=== PATIENT | male | born 1955 | race Caucasian/White ===

== ENCOUNTER 2022-01-29 08:36 | Day surgery (SDC) | payer MEDICARE, OTHER ==
--- NOTE | 2022-01-15 08:59 | HP ---
HISTORY OF PRESENT ILLNESS: The patient had some anemia of unclear etiology, in need of upper and lower endoscopy for further evaluation. PAST MEDICAL HISTORY: Hypertension. Diabetes. Atrial fibrillation. PAST SURGICAL HISTORY: Right hand surgery. MEDICATIONS: Xarelto, Metformin. ALLERGIES: NKDA. FAMILY HISTORY: Negative in regards to this problem. SOCIAL HISTORY: No alcohol use. Denies smoking. REVIEW OF SYSTEMS: Fourteen systems reviewed. No chest pain or palpitations. Other systems negative or noncontributory as above and per preadmission questionnaire. PHYSICAL EXAMINATION: GENERAL: No acute distress. HEENT: Sclerae nonicteric. NECK: No JVD. CHEST: Equal excursion, nonlabored breathing. CVS: Regular rate and rhythm. ABDOMEN: Soft. EXTREMITIES: No significant edema. NEURO: Alert, oriented, moving extremities symmetrically. RECTAL: Deferred timed to endoscopy exam. PSYCH: Appropriate mood and affect. IMPRESSION: Anemia of unclear etiology, need for EGD and colonoscopy for further evaluation. Risks and benefits explained in detail including but not limited to bleeding or infection, risk of bowel injury or perforation possibly requiring open procedure, risk of missed or nondiagnosis or incomplete exam possibly requiring barium enema, other studies or procedures. General risk of anesthesia or sedation, risk of bowel prep but not limited to, consent was obtained, will proceed with EGD and colonoscopy as an outpatient.
--- NOTE | 2022-01-29 07:43 | HP ---
DATE OF SURGERY: 01/29/2022 HISTORY OF PRESENT ILLNESS: The patient has anemia and in need of EGD and colonoscopy requested by Dr. Agarwal. PAST MEDICAL HISTORY: Hypertension, diabetes mellitus type II. PAST SURGICAL HISTORY: Right hand surgery. MEDICATIONS: Xarelto, Metformin, losartan, aspirin, metoprolol, hydrochlorothiazide. ALLERGIES: NKDA. FAMILY HISTORY: Heart disease. SOCIAL HISTORY: No smoking. Occasional alcohol use. REVIEW OF SYSTEMS: Fourteen systems reviewed. No chest pain or palpitations. He is followed by Dr. Mathew. PHYSICAL EXAMINATION: GENERAL: No acute distress. HEENT: Sclerae nonicteric. NECK: No JVD. CHEST: Equal excursion, nonlabored breathing. CVS: Regular rate and rhythm. ABDOMEN: Soft, nondistended. EXTREMITIES: No significant edema. NEURO: Alert, oriented, moving extremities symmetrically. RECTAL: Deferred timed to endoscopy exam. PSYCH: Appropriate mood and affect. IMPRESSION: Anemia, need for upper and lower endoscopy for further evaluation. 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 General risk of anesthesia or sedation, risk of bowel prep but not limited to, consent obtained, will proceed with outpatient EGD and colonoscopy under MAC anesthesia.
[2022-01-29] MEDS ORDERED: Lactated Ringers 1,000 ML IV SCH (09:00)
[2022-01-29] MEDS ORDERED: DIPRIVAN 200 MG/20 ML IV ONE ×3 (10:42→11:04)
[2022-01-29] MEDS ORDERED: Xylocaine-Mpf 2% 5 Ml Vial ONE (10:42)
[2022-01-29] MEDS ORDERED: Ephedrine Sulfate 50 MG/ML ONE (11:07)
[2022-01-29] MEDS ORDERED: Lactated Ringers 1,000 ML IV ONE (11:13)
[2022-01-29 12:29] VITALS: BP 110/60; PULSE 62; O2SAT 98
--- NOTE | 2022-01-29 15:06 | OP ---
SURGERY DATE/TIME: 01/29/2022 1038 PREOPERATIVE DIAGNOSIS: Anemia of unclear etiology, need for upper and lower endoscopy. POSTOPERATIVE DIAGNOSES: 1) Minimal gastritis. 2) Very tiny slight weakness at the hiatus. No evidence of any large hiatal hernia. 3) Distal esophagus short segment, question Chowdhury's esophagus. 4) One small erosion distal esophagus consistent with erosive esophagitis. 5) Colon polyp. 6) Pancolonic diverticulosis. 7) Fair bowel prep. 8) Withdrawal time about 12 minutes. 9) ASA Class III. PROCEDURES: 1) EGD with cold biopsy of antrum to evaluate for Helicobacter pylori. 2) Cold biopsy distal esophagus to evaluate for Chowdhury's. 3) Cold biopsy distal esophagus small erosion to evaluate erosive esophagitis. 4) Colonoscopy to cecum. 5) Hot snare polypectomy cecal polyp. 6) Hot biopsy polypectomy ascending colon polyp removed with hot biopsy with hot snare. 7) Hot biopsy polypectomy sigmoid colon polyp. 8) Hot snare polypectomy distal sigmoid colon polyp. 9) Hot snare polypectomy two rectal polyps. 10) Hot biopsy polypectomy two separate rectal polyps. SURGEON: Dr. Sabas Medina. CHASER APPRENTICE: Ibis Stringer, Medical Student III. ANESTHESIA: MAC. ESTIMATED BLOOD LOSS: Minimal. INDICATIONS: As noted above. Risks and benefits explained in detail and not limited to and consent obtained. DESCRIPTION OF PROCEDURE AND FINDINGS: The patient is taken to the endoscopy room. MAC anesthesia induced. After official time out and no disagreement with planned procedure, bite block positioned. After waiting on anesthesia, MAC anesthesia was induced. Bite block positioned. Video gastroscope easily passed down the esophagus to the patent pylorus to third portion of the duodenum. First, second and third portions of duodenum grossly unremarkable. No signs of any ulcers or obvious source of fresh or old blood. Back in the stomach, had some mild gastric erythema and some possible minimal gastritis. Cold biopsy taken to check for Helicobacter pylori. On retroflex the patient had a very slight weakness on the hiatus. No evidence of any large hiatal hernia. Scope is straightened. Gastroesophageal junction about 39 cm. About 1.5 cm of salmon-pink mucosa extending up one fingerlette up the esophagus, question Chowdhury's esophagus. Multiple cold biopsies taken. Just above this there is one small erosion and a separate cold biopsy taken of this to evaluate for erosive esophagitis. The remainder of the esophagus grossly unremarkable. No signs of any obvious mass. No signs of any active bleeding. The scope is withdrawn. The patient tolerated the procedure well. Attention was then turned to colonoscopy. Digital rectal exam did not reveal any rectal masses. Video colonoscope inserted and passed up through the tortuous sigmoid, descending, transverse, ascending colon around to the cecum. With external pressure the scope finally reached the cecum. Appendiceal orifice and valve were well visualized and photo documented. There was a 3.5 to 4 mm polyp in the cecum removed with hot snare polypectomy and brief bursts of cautery. Good hemostasis noted. Scope pulled back into the ascending colon. Another small polyp removed with hot snare polypectomy or hot biopsy polypectomy. Good hemostasis noted. The patient did have pancolonic diverticulosis. The prep overall was fair with some liquidy semisolid stool limiting the exam for small lesions. ASA Class III. The scope is carefully withdrawn over the next 12 minutes. He had pancolonic diverticulosis a little bit more concentrated on the left side. In the sigmoid colon, polyps removed hot biopsy/hot snare polypectomy. Good hemostasis noted. Back in the rectum, he had two polyps removed with hot snare polypectomy. Another one may have been a little bit inflammatory in nature. Otherwise, two small polyps removed with hot biopsy polypectomy with brief bursts of cautery. Good hemostasis noted. The scope is withdrawn. Patient tolerated the procedure well. Findings discussed with the family out in the waiting area.
== END 2022-01-29 12:15 | disposition home or self-care (01) ==
LOC: SDC 08:36
PROVIDERS: ATTEND Surgery
DX: K29.70 Gastritis, unspecified, without bleeding (principal); D64.9 Anemia, unspecified; E11.9 Type 2 diabetes mellitus without complications; D12.0 Benign neoplasm of cecum; K22.10 Ulcer of esophagus without bleeding; K57.30 Diverticulosis of large intestine without perforation or abscess without bleeding; K62.1 Rectal polyp
CPT/HCPCS: 82947; J2704

== ENCOUNTER 2023-07-29 09:38 | Day surgery (SDC) | payer MEDICARE, OTHER ==
--- NOTE | 2023-07-29 08:29 | HP ---
DATE OF SURGERY: 07/29/2023 HISTORY OF PRESENT ILLNESS: The patient is a 67-year-old gentleman with history of Chowdhury's. He is in need of follow up upper endoscopy. PAST MEDICAL HISTORY: Reflux, hypertension, atrial fibrillation, diabetes mellitus type II. PAST SURGICAL HISTORY: Hand surgery. Ankle surgery. Endoscopy. MEDICATIONS: Hydrochlorothiazide, metoprolol, losartan, metformin, Xarelto. ALLERGIES: NKDA. FAMILY HISTORY: Heart disease. SOCIAL HISTORY: No smoking. Occasional alcohol use. REVIEW OF SYSTEMS: Twelve systems reviewed. No chest pain or palpitations. Other systems negative or noncontributory as above and per preadmission questionnaire. PHYSICAL EXAMINATION: Height 6 foot. BMI 26.7. GENERAL: No acute distress. HEENT: Sclerae nonicteric. EOMI. Oral mucous membranes moist. NECK: No JVD. CHEST: Equal excursion, nonlabored breathing. CVS: Regular rate and rhythm. ABDOMEN: Soft, nontender. EXTREMITIES: No cyanosis or edema. NEURO: Alert, oriented, moving extremities symmetrically. PSYCH: Appropriate mood and affect. SKIN: Dry. IMPRESSION: History of Chowdhury's, needs follow up upper endoscopy. He was shown the risk sheet, explained the procedure in detail including but not limited to bleeding or infection, risk of bowel injury or perforation, risk of missed or nondiagnosis or incomplete exam, possibly requiring barium swallow, other studies or procedures. Risk of perforation possibly requiring converting to open procedure, ongoing risk of morbidity/mortality, risk of anesthesia or sedation. Will proceed with EGD possible biopsy as an outpatient. Hold his thinners preoperative. Otherwise continue medication for hypertension, heart disease and diabetes.
[2023-07-29] MEDS ORDERED: Lactated Ringers 1,000 ML IV SCH (10:00)
[2023-07-29 10:08] VITALS: RESP 16
[2023-07-29] MEDS ORDERED: Versed 2 MG/2 ML Injection ONE (11:51)
[2023-07-29] MEDS ORDERED: DIPRIVAN 200 MG/20 ML IV ONE (11:51)
[2023-07-29] MEDS ORDERED: SUBLIMAZE 100 MCG/2 ML ONE (11:57)
[2023-07-29 12:55] VITALS: BP 121/75; PULSE 70; TEMP 98.3; O2SAT 96
--- NOTE | 2023-07-30 08:13 | OP ---
SURGERY DATE/TIME: 07/29/2023 1156 PREOPERATIVE DIAGNOSIS: History of Chowdhury's esophagus need follow up upper endoscopy. POSTOPERATIVE DIAGNOSES: 1) Mild gastritis/gastropathy. 2) Short segment distal esophagus Chowdhury's esophagus. 3) ASA Class III. PROCEDURES: 1) EGD with cold biopsy of antrum. 2) Multiple cold biopsies distal esophagus area of salmon pink mucosa suggestive of Chowdhury's esophagus. SURGEON: Dr. Sabas Medina. ANESTHESIA: MAC. ESTIMATED BLOOD LOSS: Minimal. INDICATIONS: As noted above. Risks and benefits explained in detail and not limited to and consent obtained. DESCRIPTION OF PROCEDURE AND FINDINGS: The patient is taken to the endoscopy room. MAC anesthesia introduced. After official time out and no disagreement with planned procedure, a bite block positioned. Video gastroscope easily passed down the esophagus to the gastroesophageal junction through the patent pylorus to the third and fourth portion of the duodenum. Duodenum is grossly unremarkable. Back in the stomach, he had some gastritis and some superficial erosions in the interim, some minimal to mild gastritis. Cold biopsy is taken. Good hemostasis noted. There were no signs of any ulcers. On retroflex the gastroesophageal junction fairly snug against the scope. The scope is pulled back up and gastroesophageal junction about 40 cm. There was about 1 cm long short segment question of Chowdhury's esophagus. He has prior history of Chowdhury's. Multiple cold biopsies were taken of this area a 0.5 cm apart. There was mainly one fingerlette area. There was just a little bit of inflammation or esophagitis just right above this. This was a short segment. The remainder of the esophagus grossly unremarkable at this time. The scope is withdrawn. Patient tolerated the procedure well. There were no immediate complications. I went out to the waiting room to look for family for findings.
== END 2023-07-29 13:05 | disposition home or self-care (01) ==
LOC: SDC 09:38
PROVIDERS: ATTEND Surgery
DX: Z87.19 Personal history of other diseases of the digestive system (principal); E11.9 Type 2 diabetes mellitus without complications; K29.70 Gastritis, unspecified, without bleeding; K22.70 Barrett's esophagus without dysplasia
CPT/HCPCS: 82947; 93005; J2250; J2704; J3010

== ENCOUNTER 2024-05-30 19:50 | Emergency (ER) | payer MEDICARE, OTHER ==
--- NOTE | 2024-05-30 19:54 | ERPHSYRPT ---
- History of Present Illness Time Seen by Provider: 05/30/24 19:54 Historian: patient Exam Limitations: no limitations Physician History: This is a 68-year-old white male patient who is brought to the emergency department by the [employer] supervisor service. Patient has had intermittent vomiting episodes after eating for approximately 1 month. Today, he had 3 episodes of diarrhea stool. He has complained of generalized weakness. The intermittent vomiting occurs sometimes after eating but not every time. Patient does consume alcohol every day. He states he is decreased his oral intake of alcohol. He admits to drinking 3-4 beers a day and 3-4 hard liquor drinks a day. Patient does have a cough. Patient states that he is lost 20 to 30 pounds over the last 30 days. A year ago, he had an upper and lower endoscopy with no significant findings per his and his spouse's report. Patient has a history of diabetes, hyperlipidemia, arrhythmia, hypertension and is taking Xarelto. Patient denies chest pain and he denies abdominal pain. He states he does have a cough. He no longer smokes tobacco but does chew tobacco Timing/Duration: day(s) (He has had diarrheal symptoms x 3 today.), other (For over a month patient has had intermittent vomiting after eating.) Activities at Onset: none Severity of Pain-Max: none Severity of Pain-Current: none Modifying Factors: Improves With: coughing, vomiting Associated Symptoms: diarrhea (3 episodes today), nausea, vomiting, weakness, other (Weight loss), No chest pain Previous symptoms: no prior history, no recent treatment Allergies/Adverse Reactions: No Known Drug Allergies Allergy (Verified 05/30/24 20:08) Home Medications: Metformin HCl 500 mg [Glucophage 500 MG] 500 mg PO DAILY 01/22/22 [History] Pravastatin Sodium 10 mg PO HS 03/25/23 [History] Flecainide Acetate 50 mg PO BID 05/30/24 [History] Losartan Potassium 50 mg [Cozaar 50 MG] 1 tab PO DAILY 05/30/24 [History] Metoprolol Tartrate [Lopressor] 1 tab PO BID 05/30/24 [History] Travel Risk - International Travel Have you traveled outside of the country in past 3 weeks: No - Emerging Infectious Disease Are you exhibiting symptoms associated with any current EIDs: Yes Symptoms: Diarrhea, Vomitting - Review of Systems Constitutional: No Symptoms, Weakness Eyes: No Symptoms Ears, Nose, & Throat: No Symptoms Respiratory: No Symptoms Cardiac: No Symptoms Abdominal/Gastrointestinal: Nausea, Vomiting, Diarrhea, Appetite Changes Genitourinary Symptoms: No Symptoms Musculoskeletal: No Symptoms Skin: No Symptoms Neurological: No Symptoms Psychological: No Symptoms Endocrine: No Symptoms Hematologic/Lymphatic: No Symptoms Immunological/Allergic: No Symptoms All Other Systems: Reviewed and Negative - Past Medical History Pertinent Past Medical History: Yes Neurological History: No Pertinent History ENT History: No Pertinent History Cardiac History: Arrhythmia, Hypertension Respiratory History: Sleep Apnea Endocrine Medical History: Diabetes Type II Musculoskeletal History: No Pertinent History GI Medical History: No Pertinent History History: No Pertinent History Psycho-Social History: No Pertinent History Male Reproductive Disorders: No Pertinent History - Past Surgical History Past Surgical History: Yes Neuro Surgical History: No Pertinent History Cardiac: No Pertinent History Respiratory: No Pertinent History Gastrointestinal: No Pertinent History Genitourinary: No Pertinent History Musculoskeletal: Orthopedic Surgery Male Surgical History: No Pertinent History Other Surgical History: hand surgery. foot surgery - Social History Smoking Status: Former smoker Exposure to second hand smoke: No Drug Use: none - Nursing Vital Signs Nursing Vital Signs: Initial Vital Signs Temperature 100.2 F 05/30/24 19:55 Pulse Rate 99 H 05/30/24 19:55 Respiratory Rate 18 05/30/24 19:55 Blood Pressure 138/79 05/30/24 19:55 O2 Sat by Pulse Oximetry 98 05/30/24 19:55 Pain Scale Pain Intensity 0 - Physical Exam General Appearance: no apparent distress, alert, thin Eye Exam: PERRL/EOMI, eyes nml inspection Ears, Nose, Throat Exam: normal ENT inspection, moist mucous membranes Neck Exam: normal inspection, non-tender, supple, full range of motion Respiratory Exam: normal breath sounds, lungs clear, airway intact, No chest tenderness, No respiratory distress Cardiovascular Exam: regular rate/rhythm, normal heart sounds, normal peripheral pulses Gastrointestinal/Abdomen Exam: soft, normal bowel sounds, No tenderness Rectal Exam: not done Back Exam: normal inspection, normal range of motion, No CVA tenderness Extremity Exam: normal inspection, normal range of motion, pelvis stable Neurologic Exam: alert, oriented x 3, cooperative, 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, normal mood/affect Skin Exam: normal color, warm, dry Lymphatic Exam: No adenopathy SpO2 Interpretation: normal O2 Delivery: Room Air - Course Nursing assessment & vital signs reviewed: Yes Ordered Tests: Active Orders 24 hr Category Date Time Status ABDOMEN AND PELVIS W/0 CONTRAS [CT] Stat Exams 05/30/24 20:16 Completed CHEST WITHOUT CONTRAST [CT] Stat Exams 05/30/24 21:19 Completed AMYLASE Stat Lab 05/30/24 20:15 Completed BLOOD CULTURE Stat Lab 05/30/24 20:23 Received CBC W DIFF Stat Lab 05/30/24 20:15 Completed CMP Stat Lab 05/30/24 20:15 Completed ETHYL ALCOHOL Stat Lab 05/30/24 20:15 Completed LIPASE Stat Lab 05/30/24 20:15 Completed Lactic Acid Stat Lab 05/30/24 20:45 Completed Lactic Acid Stat Lab 05/30/24 22:54 Completed MAG [MAGNESIUM] Stat Lab 05/30/24 20:15 Completed MONO SCREEN Stat Lab 05/30/24 20:15 Completed Manual Differential NC Stat Lab 05/30/24 20:15 Completed TROPONIN Q4H Lab 05/30/24 23:33 Received UA W/RFX UR CULTURE Stat Lab 05/30/24 21:43 Completed Medication Summary Discontinued Medications Generic Name Dose Route Start Last Admin Trade Name Freq PRN Reason Stop Dose Admin Sodium Chloride 1,000 mls @ 999 mls/hr 05/30/24 20:16 05/30/24 22:25 Sodium Chloride 0.9% 1000 Ml IV 05/30/24 21:16 Infused .Q1H1M STA Infusion Sodium Chloride Confirm 05/30/24 20:53 Sodium Chloride 0.9% 1000 Ml Administered 05/30/24 20:54 Dose 1,000 mls @ ud .ROUTE .STK-MED ONE Sodium Chloride 1,000 mls @ 999 mls/hr 05/30/24 22:48 05/30/24 23:38 Sodium Chloride 0.9% 1000 Ml IV 05/30/24 23:48 999 mls/hr .Q1H1M STA Administration Levofloxacin/Dextrose 500 mg in 100 mls @ 100 mls/hr 05/30/24 23:24 05/30/24 23:39 Levofloxacin 500mg/100ml D5w IV 05/31/24 00:23 100 ml/hr STAT STA 100 mls/hr Administration Sodium Chloride Confirm 05/30/24 23:38 Sodium Chloride 0.9% 1000 Ml Administered 05/30/24 23:39 Dose 1,000 mls @ ud .ROUTE .STK-MED ONE Levofloxacin/Dextrose Confirm 05/30/24 23:38 Levofloxacin 500mg/100ml D5w Administered 05/30/24 23:39 Dose 500 mg in 100 mls @ ud IV .STK-MED ONE Ondansetron HCl 4 mg 05/30/24 20:16 05/30/24 20:58 Ondansetron Hcl 4 Mg/2 Ml Vial IV 05/30/24 20:17 4 mg STAT ONE Administration Ondansetron HCl Confirm 05/30/24 20:52 Ondansetron Hcl 4 Mg/2 Ml Vial Administered 05/30/24 20:53 Dose 4 mg .ROUTE .STK-MED ONE Pantoprazole Sodium 40 mg 05/30/24 20:16 05/30/24 20:58 Pantoprazole 40 Mg Vial IV 05/30/24 20:17 40 mg STAT ONE Administration Pantoprazole Sodium Confirm 05/30/24 20:52 Pantoprazole 40 Mg Vial Administered 05/30/24 20:53 Dose 40 mg IV .STK-MED ONE Lab/Rad Data: Laboratory Result Diagrams 05/30/24 20:15 05/30/24 20:15 Laboratory Results 05/30/24 05/30/24 05/30/24 Range/Units 22:54 21:43 20:45 WBC (4.23-9.07) x10^3/uL RBC (4.63-6.08) x10^6/uL Hgb (13.7-17.5) g/dL Hct (40.1-51.0) % MCV (79.0-92.2) fL MCH (25.7-32.2) pg MCHC (32.3-36.5) g/dL RDW (11.6-14.4) % Plt Count (163-337) x10^3/uL MPV (9.4-12.4) fL Segmented Neutrophils (34.0-67.9) % Band Neutrophils (0.0-2.0) % Lymphocytes (Manual) (21.8-53.1) % Monocytes (Manual) (5.3-12.2) % Eosinophils (Manual) (0.8-7.0) % Basophils (Manual) (0.2-1.2) % Platelet Estimate (NORMAL) RBC Morphology Sodium (135-145) mmol/L Potassium (3.5-5.1) mmol/L Chloride (98-107) mmol/L Carbon Dioxide (22-30) mmol/L Anion Gap (5-15) MEQ/L BUN (9-20) mg/dL Creatinine (0.66-1.25) mg/dL Estimated GFR ML/MIN Glucose (74-106) mg/dL Lactic Acid 3.3 H 3.9 H (0.4-2.0) Calcium (8.4-10.2) mg/dL Magnesium (1.6-2.3) mg/dL Total Bilirubin (0.2-1.3) mg/dL AST (17-59) U/L ALT (0-50) U/L Alkaline Phosphatase (38-126) U/L Serum Total Protein (6.3-8.2) g/dL Albumin (3.5-5.0) g/dL Amylase (30-110) U/L Lipase (23-300) U/L Urine Color Dark Yellow (Yellow) Urine Appearance Clear (Clear) Urine pH 6.5 (4.6-8.0) Ur Specific [place] 1.010 (1.005-1.030) Urine Protein Trace A (Negative) Urine Glucose (UA) Negative (Negative) mg/dL Urine Ketones Negative (Negative) Urine Blood Negative (Negative) Urine Nitrite Negative (Negative) Urine Bilirubin Negative (Negative) Urine Urobilinogen 1.0 A (0.2) mg/dL Ur Leukocyte Esterase Negative (Negative) U Hyaline Cast (Auto) 3-5 A (0-2) /LPF Urine Microscopic RBC 0-2 (0-5) /HPF Urine Microscopic WBC 0-2 (0-5) /HPF Ur Epithelial Cells None Seen (None Seen) /HPF Urine Bacteria None Seen (None Seen) /HPF Urine Culture Reflexed NO (NO) Ethyl Alcohol (0-10) mg/dL Monoscreen (NEGATIVE) Influenza Type A Ag (NEGATIVE) Influenza Type B Ag (NEGATIVE) RSV (PCR) (NEGATIVE) SARS-CoV-2 (PCR) (NEGATIVE) 05/30/24 05/30/24 05/30/24 Range/Units 20:15 20:15 20:15 WBC (4.23-9.07) x10^3/uL RBC (4.63-6.08) x10^6/uL Hgb (13.7-17.5) g/dL Hct (40.1-51.0) % MCV (79.0-92.2) fL MCH (25.7-32.2) pg MCHC (32.3-36.5) g/dL RDW (11.6-14.4) % Plt Count (163-337) x10^3/uL MPV (9.4-12.4) fL Segmented Neutrophils (34.0-67.9) % Band Neutrophils (0.0-2.0) % Lymphocytes (Manual) (21.8-53.1) % Monocytes (Manual) (5.3-12.2) % Eosinophils (Manual) (0.8-7.0) % Basophils (Manual) (0.2-1.2) % Platelet Estimate (NORMAL) RBC Morphology Sodium (135-145) mmol/L Potassium (3.5-5.1) mmol/L Chloride (98-107) mmol/L Carbon Dioxide (22-30) mmol/L Anion Gap (5-15) MEQ/L BUN (9-20) mg/dL Creatinine (0.66-1.25) mg/dL Estimated GFR ML/MIN Glucose (74-106) mg/dL Lactic Acid (0.4-2.0) Calcium (8.4-10.2) mg/dL Magnesium (1.6-2.3) mg/dL Total Bilirubin (0.2-1.3) mg/dL AST (17-59) U/L ALT (0-50) U/L Alkaline Phosphatase (38-126) U/L Serum Total Protein (6.3-8.2) g/dL Albumin (3.5-5.0) g/dL Amylase (30-110) U/L Lipase (23-300) U/L Urine Color (Yellow) Urine Appearance (Clear) Urine pH (4.6-8.0) Ur Specific [place] (1.005-1.030) Urine Protein (Negative) Urine Glucose (UA) (Negative) mg/dL Urine Ketones (Negative) Urine Blood (Negative) Urine Nitrite (Negative) Urine Bilirubin (Negative) Urine Urobilinogen (0.2) mg/dL Ur Leukocyte Esterase (Negative) U Hyaline Cast (Auto) (0-2) /LPF Urine Microscopic RBC (0-5) /HPF Urine Microscopic WBC (0-5) /HPF Ur Epithelial Cells (None Seen) /HPF Urine Bacteria (None Seen) /HPF Urine Culture Reflexed (NO) Ethyl Alcohol < 10 (0-10) mg/dL Monoscreen POSITIVE (NEGATIVE) Influenza Type A Ag NEGATIVE (NEGATIVE) Influenza Type B Ag NEGATIVE (NEGATIVE) RSV (PCR) NEGATIVE (NEGATIVE) SARS-CoV-2 (PCR) NEGATIVE (NEGATIVE) 05/30/24 05/30/24 05/30/24 Range/Units 20:15 20:15 20:15 WBC 14.1 H (4.23-9.07) x10^3/uL RBC 3.60 L (4.63-6.08) x10^6/uL Hgb 13.1 L (13.7-17.5) g/dL Hct 36.2 L (40.1-51.0) % MCV 100.6 H (79.0-92.2) fL MCH 36.4 H (25.7-32.2) pg MCHC 36.2 (32.3-36.5) g/dL RDW 13.0 (11.6-14.4) % Plt Count 172 (163-337) x10^3/uL MPV 10.3 (9.4-12.4) fL Segmented Neutrophils 80 H (34.0-67.9) % Band Neutrophils 10 H (0.0-2.0) % Lymphocytes (Manual) 4 L (21.8-53.1) % Monocytes (Manual) 4 L (5.3-12.2) % Eosinophils (Manual) 1 (0.8-7.0) % Basophils (Manual) 1 (0.2-1.2) % Platelet Estimate NORMAL (NORMAL) RBC Morphology NORMAL Sodium 129 L (135-145) mmol/L Potassium 4.4 (3.5-5.1) mmol/L Chloride 96 L (98-107) mmol/L Carbon Dioxide 24 (22-30) mmol/L Anion Gap 13.3 (5-15) MEQ/L BUN 4 L (9-20) mg/dL Creatinine 0.66 (0.66-1.25) mg/dL Estimated GFR 102.2 ML/MIN Glucose 147 H (74-106) mg/dL Lactic Acid (0.4-2.0) Calcium 8.9 (8.4-10.2) mg/dL Magnesium 1.4 L (1.6-2.3) mg/dL Total Bilirubin 1.40 H (0.2-1.3) mg/dL AST 97 H (17-59) U/L ALT 52 H (0-50) U/L Alkaline Phosphatase 106 (38-126) U/L Serum Total Protein 6.7 (6.3-8.2) g/dL Albumin 3.5 (3.5-5.0) g/dL Amylase 61 (30-110) U/L Lipase 174 (23-300) U/L Urine Color (Yellow) Urine Appearance (Clear) Urine pH (4.6-8.0) Ur Specific [place] (1.005-1.030) Urine Protein (Negative) Urine Glucose (UA) (Negative) mg/dL Urine Ketones (Negative) Urine Blood (Negative) Urine Nitrite (Negative) Urine Bilirubin (Negative) Urine Urobilinogen (0.2) mg/dL Ur Leukocyte Esterase (Negative) U Hyaline Cast (Auto) (0-2) /LPF Urine Microscopic RBC (0-5) /HPF Urine Microscopic WBC (0-5) /HPF Ur Epithelial Cells (None Seen) /HPF Urine Bacteria (None Seen) /HPF Urine Culture Reflexed (NO) Ethyl Alcohol (0-10) mg/dL Monoscreen (NEGATIVE) Influenza Type A Ag (NEGATIVE) Influenza Type B Ag (NEGATIVE) RSV (PCR) (NEGATIVE) SARS-CoV-2 (PCR) (NEGATIVE) - Progress Progress: unchanged Progress Note: 05/30/24 21:24 My medical decision making and the assignment of moderate complexity to this patient's medical issue today is based on review of the patient's past medical history, review the patient's medication list, reviewed patient drug allergy list, history present illness and physical findings on examination. The workup in this patient includes placement of an intravenous line, infusion of normal saline solution, infusion of Zofran intravenously, infusion of Protonix intravenously, CBC, CMP, urinalysis, viral swabs, monotest, CT scan of the chest and CT scan of the abdomen pelvis both without contrast. Differential diagnosis includes but is not limited to viral illness, pneumonia, intrathoracic abnormality, acute intra-abdominal/pelvis abnormality 05/31/24 00:35 I interpreted the patient's laboratory data results. The patient does have leukocytosis with an elevated lactic acid level. His magnesium level is slightly low at 1.4. His monotest is positive. The CT scan of the chest without contrast was interpreted by the radiologist and I reviewed the impression. 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 Questionable chronic organizing pneumonia. No pleural effusion. Stable cholelithiasis and degenerative changes in the spine. CT scan of the abdomen pelvis without contrast was interpreted by the radiologist and I reviewed the impression. Cholelithiasis without cholecystitis. Noncomplicated colonic diverticula. No change when compared to similar study dated 01/02/2022. The patient denies shortness of breath and his room air oxygen saturation level is 98%. He denies chest pain. I reviewed the patient's CT scan results and his laboratory data results with the patient and his significant other. I expressed to him my concern that he has an elevated white count, pneumonia, and a drop in his blood pressure. After 2 L crystalloid infusion, his systolic blood pressure has improved to 103 mmHg. However, I told the patient and his systolic blood pressure was not in the normal range that he should be transferred to a facility or admitted into our facility. Patient declines both of those options. He understands that his condition can worsen suddenly or cause other life- threatening medical issues. The patient was told he could be experiencing sepsis and this can worsen. Patient understands and he wants to leave AGAINST MEDICAL ADVICE. He will sign the AGAINST MEDICAL ADVICE form. Counseled pt/family regarding: lab results, diagnosis, need for follow-up, rad results Medical Desision Making - Independent Historian Additional History obtained from: Spouse - Diagnostic Testing Diagnostic test were ordered, analyzed, and reviewed by me: Yes Radiological Interpretation: Reviewed by me, Teleradiologist Report - Risk of complications The pt has a mod risk of morbidity or mortality based on: Need for prescription drug management - Departure Departure Disposition: AMA Clinical Impression: Pneumonia, Hypotension, Hypomagnesemia Condition: Fair Critical Care Time: Yes Critical Care Time(excluding separately billable procedures): Critical 30-74 mins (45) Referrals: TONY,SUNNI [Primary Care Provider] - Follow up/PCP as directed Additional Instructions: Drink plenty of fluids. Take your antibiotics and other medications as prescribed. Return to the emergency department if symptoms worsen. Call your primary care provider on 06/01/2024 to make arrangements for a follow-up appointment and for further recommendations and management Prescriptions: Levofloxacin [Levaquin 500 MG Tablet] 500 mg PO DAILY #7 tablet Magnesium Oxide 400 mg [Mag-Ox 400] 400 mg PO DAILY #3 tablet
[2024-05-30 19:57] VITALS: TEMP 100.2
[2024-05-30 20:47] LABS: Hematocrit 36.2 % (40.1-51.0); Hemoglobin 13.1 g/dL (13.7-17.5); Mean Cell Volume 100.6 fL (79.0-92.2); Mean Corpuscular Hemoglobin 36.4 pg (25.7-32.2); Mean Corpuscular Hgb Concent. 36.2 g/dL (32.3-36.5); Mean Platelet Volume 10.3 fL (9.4-12.4); Platelet Count 172 x10^3/uL (163-337); White Blood Count 14.1 x10^3/uL (4.23-9.07)
[2024-05-30] MEDS ORDERED: PROTONIX 40 MG IV IV ONE (20:52)
[2024-05-30] MEDS ORDERED: Zofran 4 MG/2 ML VIAL ONE (20:52)
[2024-05-30] MEDS ORDERED: Sodium Chloride 0.9% 1000 ML 1,000 ML ONE ×2 (20:53→23:38)
[2024-05-30] MEDS: PROTONIX 40 MG IV IV ONE (20:58)
[2024-05-30] MEDS: Zofran 4 MG/2 ML VIAL IV ONE (20:58)
[2024-05-30] MEDS: Sodium Chloride 0.9% 1000 ML 1,000 ML IV STA ×2 (20:58→23:38)
[2024-05-30 21:07] LABS: ALBUMIN 3.5 g/dL (3.5-5.0); ANION GAP 13.3 MEQ/L (5-15); BILIRUBIN,TOTAL 1.4 mg/dL (0.2-1.3); Calcium 8.9 mg/dL (8.4-10.2); Creatinine 1 0.66 mg/dL (0.66-1.25); EST GLOMERULAR FILTRATION RATE 102.2 ML/MIN; Potassium 4.4 mmol/L (3.5-5.1); Total Protein 6.7 g/dL (6.3-8.2)
[2024-05-30 21:23] LABS: INFLUENZA A NEGATIVE (NEGATIVE); INFLUENZA B NEGATIVE (NEGATIVE); RESPIRATORY SYNCTIAL VIRUS NEGATIVE (NEGATIVE); SARS-CoV-2 Xpert Express NEGATIVE (NEGATIVE)
[2024-05-30 21:53] LABS: Appearance Clear (Clear); Bacteria None Seen /HPF (None Seen); Bilirubin Negative (Negative); Blood Negative (Negative); Epithelial Cells None Seen /HPF (None Seen); Glucose, Urine Negative (Negative); Ketones Negative (Negative); Leukocyte Esterase Negative (Negative); Nitrite Negative (Negative); Ph 6.5 (4.6-8.0); Protein,Urine Dip Trace (Negative); RBC 0-2 /HPF (0-5); WBC 0-2 /HPF (0-5)
--- NOTE | 2024-05-30 22:40 | XRAY ---
CLINICAL HISTORY: Vomiting and diarrhea COMPARISON: Comparison is made with CT dated 01/12/2022. TECHNIQUE: Non-contrast CT of the abdomen and pelvis was performed, with the following protocol: axial images, and reconstructed coronal and sagittal images. One of the following dose reduction techniques was utilized for this exam: Automated exposure control, adjustment of the mA and/or kV according to patient size, and use of iterative reconstruction. FINDINGS: Abdomen: Liver: Normal in size, with fatty hypoattenuation and caudate lobe hypertrophy. An 8 mm faint hypodensity is seen in the left lobe of liver. Gallbladder and Biliary System: The gallbladder is normal in size and shape. Two calculi of 9-10 mm each are seen in gall bladder lumen. No wall thickening, pericholecystic fluid, or wall edema identified. Pancreas: Pancreatic head, body, and tail are visualized and appear normal in size and density. No pancreatic masses or calcifications were noted. Spleen: Normal in size, shape, and density. No splenic lesions or masses were identified. Kidneys and Adrenal Glands: Both kidneys are normal in size, shape, and position. Cortical thickness is within normal limits. No renal calculi or hydronephrosis. Bilateral perinephric fat stranding is seen - non-specific. Adrenal glands are unremarkable. Abdominal Aorta and Vessels: The abdominal aorta and major branches are patent without evidence of an aneurysm. Significant atherosclerotic changes are seen as interrupted wall calcifications. Pelvis: Urinary Bladder: Normal in contour and wall thickness. No intraluminal lesions. Prostate: Normal in size and contour. No masses or abnormal thickening. Seminal Vesicles: Normal appearance without abnormal enlargement or mass. Peritoneal and Retroperitoneal Structures: No free fluid or abnormal fluid collections were identified within the abdomen or pelvis. No lymphadenopathy was noted. Bowel: Colonic diverticulae are seen in descending and sigmoid colon, however, no pericolonic fat stranding or pericolonic abscesses is seen. No evidence of bowel obstruction or wall thickening. The appendix appears normal with no adeel appendiceal fat stranding or fluid collection. Bones and Soft Tissues: Visualized spine shows degenerative changes in the form of multilevel anterior osteophytosis along with vacuum phenomenon at the L4-L5 level. No fractures or abnormal masses were identified. Lung bases show bilateral fibrotic strands. IMPRESSION: Overall, non-contrast CT abdomen and pelvis demonstrate: 1. Cholelithiasis without cholecystitis. 2. Non-complicated colonic diverticulosis. 3. Hepatic hypodensity which on comparison with previous contrast enhanced CT is a hepatic cyst. 4. On comparison with the previous CT dated 01/12/2022 no interval change. Electronically Signed by: Aneudy Earl MD. (05/30/2024 22:35:59 EST)
--- NOTE | 2024-05-30 22:42 | XRAY ---
CLINICAL HISTORY: COUGH, 30 LB WEIGHT LOSS COMPARISON: 01/12/2022. TECHNIQUE: Contiguous axial CT images of the chest were acquired without administration of intravenous contrast. Coronal and sagittal reconstructions were obtained. One of the following dose reduction techniques were utilized for this exam: Automated exposure control, adjustment of the mA and/or kV according to patient size, use of iterative reconstruction. FINDINGS: Lungs: Focal consolidation seen involving the para hilar regions of both lungs, the right lung middle lobe and the lingular segment of left lung upper lobe. Patchy subpleural groundglass consolidation seen in the posterior and apico-posterior segments of both upper lobes and the posterior basal segments of both lungs lower lobes. Appearances are in keeping with alveolitis/pneumonitis. However possibility of other etiologies like chronic eosinophilic pneumonia/extrinsic allergic alveolitis, and chronic organizing pneumonia may also need consideration and exclusion. No pulmonary masses or gross nodules are identified. For calcified granuloma seen in the lateral basal segment of the right lower lobe. No pleural effusion seen. Focal pleuroperitoneal thickening with a speck of calcification seen along the posterior aspect of the spleen near the left basal lung. Mediastinum: The mediastinum is normal in size and contour. No mediastinal mass or abnormal lymphadenopathy. The heart size is within normal limits. Atherosclerotic aortic wall calcifications seen Hilar Structures: Few small partially calcified lymph nodes seen in the right hilar region. No significant hilar lymph nodes seen. Trachea and Main Bronchi: The trachea and main bronchi are patent without evidence of obstruction or abnormality. Chest Wall: The chest wall is unremarkable with no evidence of soft tissue or bony abnormalities. Upper Abdomen: Visualized portions of the liver, spleen, adrenal glands, and right kidney are unremarkable. Very small hiatal hernia seen Two radiodense foci seen in the gallbladder suggest cholelithiasis Bones: Degenerative changes seen in the spine. 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 IMPRESSION: 1. Appearances described in both the lungs are in keeping with alveolitis/pneumonitis, however possibility of other etiologies like chronic eosinophilic pneumonia / extrinsic allergic alveolitis and chronic organizing penumonia may also need consideration and exclusion. 2. No pleural effusion seen. 3. Few non specific small partially calcified lymph nodes seen in the right hilar region. Stable 4. Focal pleuro-peritoneal thickening seen along the posterior aspect of the spleen near the left basal lung with a speck of calcification likely represents sequelae of earlier infected inflammatory etiology 5. Cholelithiasis. Stable 6. Degenerative changes in his spine with thickened anterior longitudinal ligament and focal intervertebral disc calcification. Stable 7. Very small hiatal hernia seen. Stable 8. Clinical and lab correlation advised. Further evaluation by HRCT chest may also be obtained if clinically indicated. [facility] ER was called at [phone] at 09:35 PM [employer] M[employer]ER, 05/30/2024 and Shelton Day was informed regarding the presence of important medical findings in the reports. Electronically Signed by: Aneudy Earl MD. (05/30/2024 22:37:38 EST)
[2024-05-30 22:53] LABS: BAND 10 % (0.0-2.0); Basophil 1 % (0.2-1.2); Eosinophil 1 % (0.8-7.0); Lymphocytes 4 % (21.8-53.1); Monocyte 4 % (5.3-12.2); Neutrophils 80 % (34.0-67.9); Platelet Estimate NORMAL (NORMAL); Total Cells Counted 100
[2024-05-30] MEDS ORDERED: Levofloxacin 500MG/100ML D5W 500 MG/100 ML BAG IV ONE (23:38)
[2024-05-30] MEDS: Levofloxacin 500MG/100ML D5W 500 MG/100 ML BAG IV STA (23:39)
[2024-05-31 00:06] VITALS: RESP 16
[2024-05-31 00:49] VITALS: BP 92/58; PULSE 80; O2SAT 97
== END 2024-05-31 00:50 | disposition left against medical advice (07) ==
LOC: ED 19:50
DX: J18.9 Pneumonia, unspecified organism (principal); I95.9 Hypotension, unspecified; E83.42 Hypomagnesemia; R19.7 Diarrhea, unspecified; R11.2 Nausea with vomiting, unspecified; R53.1 Weakness; R05.9 Cough, unspecified; E11.9 Type 2 diabetes mellitus without complications; E78.5 Hyperlipidemia, unspecified; I10 Essential (primary) hypertension; Z79.01 Long term (current) use of anticoagulants; Z79.84 Long term (current) use of oral hypoglycemic drugs; Z79.899 Other long term (current) drug therapy
CPT/HCPCS: 0241U; 36415; 71250; 74176; 80053; 81001; 82077; 82150; 83605; 83690; 83735; 84484; 85025; 86308; 87040; 93005; 96360; 96361; 96374; 96375; 99284; 99291; J1956; J2405

== ENCOUNTER 2024-08-31 09:19 | Day surgery (SDC) | payer MEDICARE, OTHER ==
[~2024-08-31 09:19] MED LIST: Sensorcaine 0.25% 10 ML ONE
--- NOTE | 2024-08-31 09:39 | HP ---
HISTORY OF PRESENT ILLNESS: He had nausea, some vomiting preceding heartburn. Had a CT scan, showed cholelithiasis. [place] he had acute exacerbation of chronic cholecystitis, symptomatic cholelithiasis. Thought he would benefit from consideration of cholecystectomy. PAST MEDICAL HISTORY: History of cataracts, arthritis, reflux, psoriasis, heart disease, had atrial fibrillation in the past, type 2 diabetes, hyperlipidemia, hypertension. HOME MEDICATIONS: Hydroxyzine, flecainide, losartan, metoprolol, Xarelto, pravastatin, magnesium. ALLERGIES: No known drug allergies. PAST SURGICAL HISTORY: Had left hand and left ankle surgery in the past. SOCIAL HISTORY: Not smoking at this time. Occasional alcohol use. FAMILY HISTORY: Heart disease. REVIEW OF SYSTEMS: Twelve systems reviewed. Pertinent for multiple medical problems as noted above. Otherwise, negative. PHYSICAL EXAMINATION: GENERAL: Height 6 feet. BMI 23.06. No acute distress. HEENT: Sclerae anicteric. Extraocular movements intact. NECK: No JVD. CARDIOVASCULAR: Regular rate and rhythm. RESPIRATORY: Equal excursion, nonlabored breathing. ABDOMEN: Soft. SKIN: Dry. EXTREMITIES: No cyanosis or edema. NEUROLOGIC: Alert and oriented. Moving all extremities symmetrically. PSYCHIATRIC: Appropriate mood and affect. IMPRESSION: Acute exacerbation of chronic cholecystitis, symptomatic cholelithiasis. Patient will have cholecystectomy. Shown the gallbladder pamphlet. Risks explained in detail but not limited to bleeding, infection; risk of trocar injury or hernia; risk of bile leak or bile duct injury, retained stone or sludge possibly requiring ERCP or open procedure; risk of aches, pains, bloating, constipation, and/or loose stools possibly chronic in nature, possibility of no improvement of preop symptoms possibly requiring further workup or studies or endoscopy or other studies or referrals. Patient holding blood thinners preop. Otherwise, plan schedule outpatient under general laparoscopic cholecystectomy, possible open, as an outpatient. Otherwise, continue medication for hypertension, heart disease, hyperlipidemia, diabetes, history of psoriasis, and reflux. Will proceed with outpatient laparoscopic cholecystectomy, possible open.
[2024-08-31] MEDS ORDERED: Pepcid 20 MG VIAL IV ONE (09:41)
[2024-08-31] MEDS ORDERED: NEURONTIN ONE (09:42)
[2024-08-31] MEDS ORDERED: Lactated Ringers 1,000 ML IV ONE (09:42)
[2024-08-31] MEDS ORDERED: TYLENOL EXTRA STRENGTH 500 MG ONE (09:42)
[2024-08-31] MEDS ORDERED: Decadron 4 MG ONE (09:42)
[2024-08-31] MEDS: Decadron 4 MG PO ONE (09:43)
[2024-08-31] MEDS: NEURONTIN PO ONE (09:43)
[2024-08-31] MEDS: Lactated Ringers 1,000 ML IV SCH (09:43)
[2024-08-31] MEDS: Pepcid 20 MG VIAL IV ONE (09:44)
[2024-08-31] MEDS: TYLENOL EXTRA STRENGTH 500 MG PO ONE (09:44)
[2024-08-31] MEDS: CEFOXITIN 2 GM/100 ML NACL IVPB 2 GM/100 ML IVPB IV ONE (09:46)
[2024-08-31] MEDS ORDERED: CEFOXITIN 2 GM/100 ML NACL IVPB 2 GM/100 ML IVPB IV ONE (09:46)
[2024-08-31 09:50] VITALS: RESP 18
[2024-08-31 10:28] LABS: Calcium 9.2 mg/dL (8.4-10.2); Creatinine 1 0.47 mg/dL (0.66-1.25); EST GLOMERULAR FILTRATION RATE 113.2 ML/MIN
[2024-08-31] MEDS ORDERED: propofoL IV ONE (12:32)
[2024-08-31] MEDS ORDERED: BRIDION 200MG/2ML IV ONE (12:32)
[2024-08-31] MEDS ORDERED: ROCURONIUM BROMIDE IV ONE (12:32)
[2024-08-31] MEDS ORDERED: Xylocaine-Mpf 2% 5 Ml Vial ONE (12:32)
[2024-08-31] MEDS ORDERED: TORAdol 30 mg Injection ONE (12:32)
[2024-08-31] MEDS ORDERED: dexAMETHasone sodium phosphate ONE (12:32)
[2024-08-31] MEDS ORDERED: Zofran 4 MG/2 ML VIAL ONE (12:32)
[2024-08-31] MEDS ORDERED: SUBLIMAZE 100 MCG/2 ML ONE (12:34)
[2024-08-31] MEDS ORDERED: BENADRYL 50 MG/ML ONE (13:10)
[2024-08-31] MEDS ORDERED: Sodium Chloride 0.9% 1000 ML 1,000 ML ONE (13:16)
[2024-08-31] MEDS ORDERED: SUBLIMAZE 250 MCG/5 ML ONE (13:24)
[2024-08-31 15:07] VITALS: BP 137/78; PULSE 75; TEMP 98.4; O2SAT 94
--- NOTE | 2024-09-01 12:35 | OP ---
SURGERY DATE/TIME: 08/31/2024 [id number] PREOPERATIVE DIAGNOSIS: Acute exacerbation of chronic cholecystitis, symptomatic cholelithiasis. POSTOPERATIVE DIAGNOSIS: Acute exacerbation of chronic cholecystitis, symptomatic cholelithiasis. PROCEDURE: Laparoscopic cholecystectomy. SURGEON: Armani Medina MD ANESTHESIA: General. ESTIMATED BLOOD LOSS: Minimal. INDICATIONS: Consent was obtained. DESCRIPTION OF PROCEDURE AND FINDINGS: The patient was taken to the operating room. General anesthesia was induced. Prepped and draped in the usual sterile fashion. After official time-out, no disagreement in planned procedure, a transverse incision was made in the infraumbilical area. Fascia grasped and pulled upward. Veress needle inserted. Tested with saline. Pneumoperitoneum accomplished insufflating from an opening pressure of 0-15. A 5 mm bladeless port and camera inserted without difficulty, followed by two 5 mm right upper quadrant ports and an 11 mm epigastric port. Gallbladder was grasped and retracted to the edge of the liver in line with Calot triangle and dissection posterolateral to anterior fashion. Slowly, carefully the cystic duct/infundibular junction was slowly, carefully well skeletonized so the critical view was obtained both anteriorly and posteriorly. Once this was accomplished, the cystic duct and cystic artery were clipped x3 and divided in the usual fashion. The gallbladder was slowly and carefully dissected free from its dense attachments to the liver bed, clipping additional oozing side branches off the cystic artery/vein directly along the gallbladder wall as necessary. Just prior to releasing the final attachments from the anterior edge of the liver, the liver bed had some little bit of oozing. Had been on Xarelto recently. Was controlled with some pinpoint cautery near the anterior edge of the liver. Appeared to have adequate hemostasis. The gallbladder was released from final attachments to the anterior edge of the liver. As he had some gallstones, these were placed in the provided sac, and pulled up and out of the fascial defect. Spread slightly with a clamp and then gallbladder and bag pulled free and passed off. This fascia defect closed with puncture closure device with #1 Vicryl. Later at the very end of the procedure, UR Vicryl, 0 Vicryl was placed to close the portion of external fascia that could be visualized through the skin incision. Copious irrigation was accomplished lateral to the liver and subhepatic space, seem quite clear. Liver bed reinspected. The clips were noted to be in place in the cystic duct/cystic artery stumps. No signs of any active bleeding or bile leakage. It was felt there was no benefit for drain placement at this point. It was felt he was a little bit on the oozy side earlier and that he should hold his Xarelto for 3 to 4 days before resuming it and resume once adequate hemostasis noted. Pneumoperitoneum decompressed. Wounds irrigated out. Skin incision closed with 4-0 Vicryl. Then, 0.25% Marcaine local injected along each skin incision and fascial defect at the beginning of the procedure. There were no immediate complications. Steri-Strips and sterile dressing applied. The patient tolerated the procedure well. Findings discussed with family out in the waiting area. He was extubated and transferred to recovery room in stable condition.
== END 2024-08-31 15:15 | disposition home or self-care (01) ==
LOC: SDC 09:19
PROVIDERS: ATTEND Surgery
DX: K80.10 Calculus of gallbladder with chronic cholecystitis without obstruction (principal); E11.9 Type 2 diabetes mellitus without complications
CPT/HCPCS: 36415; 80048; 83036; 93005; J0694; J1100; J1200; J1885; J2405; J2704; J3010; A9270-GY

== ENCOUNTER 2024-09-30 22:22 | Observation (INO) | payer MEDICARE, OTHER ==
[2024-09-30] MEDS ORDERED: MORPHINE SULFATE 4 MG INJ ONE (23:29)
[2024-09-30] MEDS: MORPHINE SULFATE 4 MG INJ IM ONE (23:32)
--- NOTE | 2024-09-30 23:37 | ERPHSYRPT ---
- History of Present Illness Time Seen by Provider: 09/30/24 22:43 Source: patient Exam Limitations: no limitations Patient Subjective Stated Complaint: CAN'T URINATE Triage Nursing Assessment: Pt brought into ER in wheelchair, at bedside. Pt c/o urinary retention x2 days, has burning with urination and dribbling. Pt c/o have a red rash to his back and upper thighs that itches and he is to see a restaurant culinary manager on Saturday regarding it. Physician History: 68 years old male with history of hypertension, atrial fibrillation on Xarelto, psoriasis, ichthyosis vulgaris presented in the ER with complains of difficulty urination for the last 2 days. Patient report he feels lower abdominal pain/distention, dribbling of urine. Denies any history of prostate issues. No fever or chills reported denies any history of recurrent UTIs. No testicular pain or swelling. While in the ER patient is in A-fib RVR with heart rate in 140s. Patient denies any chest pain palpitations or shortness of breath. No fever chills or cough reported. Allergies/Adverse Reactions: No Known Drug Allergies Allergy (Verified 09/30/24 22:52) Home Medications: Pravastatin Sodium 10 mg PO HS 03/25/23 [History] Flecainide Acetate 50 mg PO BID 05/30/24 [History] Losartan Potassium 50 mg [Cozaar 50 MG] 1 tab PO DAILY 05/30/24 [History] Metoprolol Tartrate [Lopressor] 1.5 tab PO BID 05/30/24 [History] Hydroxyzine HCl 25 mg [Atarax 25 mg] 25 mg PO BID 08/25/24 [History] Cholecalciferol (Vitamin D3) [Vitamin D] 2,000 unit PO DAILY 09/30/24 [History] Folic Acid 1 mg [Folate 1 mg] 1 mg PO DAILY 09/30/24 [History] Hx Tetanus, Diphtheria Vaccination/Date Given: Yes Hx Influenza Vaccination/Date Given: Yes Hx Pneumococcal Vaccination/Date Given: Yes Travel Risk - International Travel Have you traveled outside of the country in past 3 weeks: No - Emerging Infectious Disease Are you exhibiting symptoms associated with any current EIDs: No Symptoms: Diarrhea, Vomitting Comment: weakness - Past Medical History Pertinent Past Medical History: Yes Neurological History: No Pertinent History ENT History: Cataracts Cardiac History: Arrhythmia, High Cholesterol, Hypertension Respiratory History: Sleep Apnea Endocrine Medical History: Diabetes Type II Musculoskeletal History: Arthritis GI Medical History: GERD, Gallbladder Disease History: No Pertinent History Psycho-Social History: No Pertinent History Male Reproductive Disorders: No Pertinent History Other Medical History: Psoriasis - Past Surgical History Past Surgical History: Yes Neuro Surgical History: No Pertinent History Cardiac: No Pertinent History Respiratory: No Pertinent History Gastrointestinal: Cholecystectomy Genitourinary: No Pertinent History Musculoskeletal: Orthopedic Surgery Male Surgical History: No Pertinent History Other Surgical History: hand surgery. foot surgery - Social History Smoking Status: Never smoker Exposure to second hand smoke: No Drug Use: none - Social Determinants of Health Will the patient participate in the screening: Yes Do you worry about a steady place to live?: No Do you have any problems with any of the following?: No known problems In the past 12 months,have you had to go without utilities?: No Transportation Issues: No Has anyone in your support network made you feel unsafe?: No Have you or anyone in your house had to go w/o enough food: No - Review of Systems Constitutional: No Symptoms Eyes: No Symptoms Ears, Nose, & Throat: No Symptoms Respiratory: No Symptoms Cardiac: No Symptoms Abdominal/Gastrointestinal: Abdominal Pain Genitourinary Symptoms: Urinary Retention Musculoskeletal: Arthralgias Skin: Skin Lesions Neurological: No Symptoms Endocrine: No Symptoms Hematologic/Lymphatic: No Symptoms - Nursing Vital Signs Nursing Vital Signs: Initial Vital Signs Temperature 98.9 F 09/30/24 22:35 Pulse Rate 92 H 09/30/24 22:35 Respiratory Rate 18 09/30/24 22:35 Blood Pressure 138/78 09/30/24 22:35 O2 Sat by Pulse Oximetry 96 09/30/24 22:35 Pain Scale Pain Intensity 5 - Physical Exam General Appearance: no apparent distress, alert Eye Exam: PERRL/EOMI Ears, Nose, Throat Exam: normal ENT inspection Neck Exam: normal inspection, supple, full range of motion Respiratory Exam: normal breath sounds, lungs clear Cardiovascular Exam: tachycardia, irregular Gastrointestinal/Abdomen Exam: soft, normal bowel sounds, tenderness (Suprapubic mild tenderness) Back Exam: normal inspection, normal range of motion Extremity Exam: normal inspection, normal range of motion Neurologic Exam: alert, oriented x 3, cooperative, staff submarine warfare officer II-XII nml as tested Skin Exam: rash SpO2 Interpretation: normal SpO2: 98 O2 Delivery: Room Air - Course EKG Interpreted by Me: RATE (150), A-fib, NORMAL AXIS, NORMAL INTERVALS, Non-spe cific ST Changes Ordered Tests: Active Orders 24 hr Category Date Time Status Medical Technologist Chief STAT Care 09/30/24 23:46 Active EKG-ER Only STAT Care 09/30/24 23:45 Active IV Insertion STAT Care 09/30/24 23:45 Active CHEST 1 VIEW (PORTABLE) Stat Exams 09/30/24 23:45 Taken CULTURE,URINE Stat Lab 10/01/24 01:14 Received TROPONIN Q4H Lab 10/01/24 03:45 Ordered TROPONIN Q4H Lab 10/01/24 07:45 Ordered UA W/RFX UR CULTURE Stat Lab 10/01/24 01:14 Completed Medication Summary Generic Name Dose Route Start Last Admin Trade Name Freq PRN Reason Stop Dose Admin Diltiazem HCl 100 mls @ 5 mls/hr 10/01/24 00:50 10/01/24 01:09 Cardizem Drip 100 Mg/100 Ml D5w IV 10/31/24 00:49 5 mg/hr .Q20H PRN 5 mls/hr HEART RATE/ A-FIB Administration Protocol 5 MG/HR Discontinued Medications Generic Name Dose Route Start Last Admin Trade Name Freq PRN Reason Stop Dose Admin Diltiazem HCl 10 mg 09/30/24 23:46 10/01/24 00:29 Diltiazem Hcl Iv 5 Mg/Ml Vial IV 09/30/24 23:47 10 mg STAT ONE Administration Diltiazem HCl Confirm 10/01/24 00:26 Diltiazem Hcl Iv 5 Mg/Ml Vial Administered 10/01/24 00:27 Dose 50 mg IV .STK-MED ONE Sodium Chloride 1,000 mls @ 999 mls/hr 09/30/24 23:45 10/01/24 00:28 Sodium Chloride 0.9% 1000 Ml IV 10/01/24 00:45 999 mls/hr .Q1H1M STA Administration Sodium Chloride Confirm 10/01/24 00:26 Sodium Chloride 0.9% 1000 Ml Administered 10/01/24 00:27 Dose 1,000 mls @ ud .ROUTE .STK-MED ONE Morphine Sulfate 4 mg 09/30/24 23:29 09/30/24 23:32 Morphine Sulfate 4 Mg/Ml Injection IM 09/30/24 23:30 4 mg STAT ONE Administration Morphine Sulfate Confirm 09/30/24 23:29 Morphine Sulfate 4 Mg/Ml Injection Administered 09/30/24 23:30 Dose 4 mg .ROUTE .STK-MED ONE Lab/Rad Data: Laboratory Result Diagrams 09/30/24 00:03 09/30/24 00:03 Laboratory Results 10/01/24 09/30/24 09/30/24 Range/Units 01:14 00:03 00:03 WBC 9.2 H (4.23-9.07) x10^3/uL RBC 3.98 L (4.63-6.08) x10^6/uL Hgb 14.0 (13.7-17.5) g/dL Hct 39.5 L (40.1-51.0) % MCV 99.2 H (79.0-92.2) fL MCH 35.2 H (25.7-32.2) pg MCHC 35.4 (32.3-36.5) g/dL RDW 12.3 (11.6-14.4) % Plt Count 124 L (163-337) x10^3/uL MPV 11.4 (9.4-12.4) fL Gran % 73.2 H (34.0-67.9) % Immature Gran % (Auto) 1.3 H (0.001-0.429) % Nucleat RBC Rel Count 0.0 (0.00-0.2) % Eos # (Auto) 0.08 (0.04-0.54) x10^3/uL Immature Gran # (Auto) 0.12 H (0.001-0.031) x10^3u/L Absolute Lymphs (auto) 1.03 L (1.32-3.57) x10^3/uL Absolute Monos (auto) 1.19 H (0.30-0.82) x10^3/uL Absolute Nucleated RBC 0.00 (0.00-0.012) x10^3u/L Lymphocytes % 11.2 L (21.8-53.1) % Monocytes % 13.0 H (5.3-12.2) % Eosinophils % 0.9 (0.8-7.0) % Basophils % 0.4 (0.2-1.2) % Absolute Granulocytes 6.71 H (1.78-5.38) x10^3/uL Basophils # 0.04 (0.01-0.08) x10^3/uL Sodium 132 L (135-145) mmol/L Potassium 4.0 (3.5-5.1) mmol/L Chloride 100 (98-107) mmol/L Carbon Dioxide 20 L (22-30) mmol/L Anion Gap 15.6 H (5-15) MEQ/L BUN 4 L (9-20) mg/dL Creatinine 0.46 L (0.66-1.25) mg/dL Estimated GFR 113.9 ML/MIN Glucose 139 H (74-106) mg/dL Calcium 8.3 L (8.4-10.2) mg/dL Total Bilirubin 0.70 (0.2-1.3) mg/dL AST 158 H (17-59) U/L ALT 73 H (0-50) U/L Alkaline Phosphatase 150 H (38-126) U/L Troponin I < 0.012 (0.000-0.033) ng/mL NT-Pro-B Natriuret Pep 631 (<300) pg/mL Serum Total Protein 6.8 (6.3-8.2) g/dL Albumin 3.3 L (3.5-5.0) g/dL Urine Color Yellow (Yellow) Urine Appearance Clear (Clear) Urine pH 8.0 (4.6-8.0) Ur Specific [place] 1.010 (1.005-1.030) Urine Protein 100 A (Negative) Urine Glucose (UA) Negative (Negative) mg/dL Urine Ketones Negative (Negative) Urine Blood Large A (Negative) Urine Nitrite Negative (Negative) Urine Bilirubin Negative (Negative) Urine Urobilinogen 1.0 A (0.2) mg/dL Ur Leukocyte Esterase Trace A (Negative) U Hyaline Cast (Auto) 3-5 A (0-2) /LPF Urine Microscopic RBC >100 A (0-5) /HPF Urine Microscopic WBC 21-50 A (0-5) /HPF Ur Epithelial Cells Rare (None Seen) /HPF Urine Bacteria None Seen (None Seen) /HPF Urine Culture Reflexed YES (NO) - Progress Progress: improved, re-examined Progress Note: 10/01/24 01:50 68 years old is evaluated in the ER for urinary complaints with difficulty urination and questionable retention, I have placed [place] catheter with no significant drainage, patient later on reported that he did void before arrival in the ER. While in the ER patient was in A-fib RVR with heart rate in 140s and 150s. He is given IV Cardizem and started on the drip. With improvement in the heart rate. Chest x-ray showed questionable airspace disease on the right side and does have UTI, given a dose of Rocephin. Official report is pending. Has normal white count, chemistries fairly unremarkable and negative initial troponins. I have shared the results of workup with patient and family and plan of admission which they understand and agree. Discussed with Dr. Aguila and patient is being admitted. Complexity of problem addressed: High acuity Complexity of data reviewed/analyzed: Moderate to high Risk of complication: High risk Discussed with Dr.: Other (Dr. Aguila hospitalist) Counseled pt/family regarding: lab results, diagnosis, rad results Medical Desision Making - Independent Historian Additional History obtained from: Spouse - Discussion of managment Care discussed with:: hospitalist Reviewed:: Test results Agreed on:: Treatment plan, place in obs Will see patient: in hospital - Diagnostic Testing Diagnostic test were ordered, analyzed, and reviewed by me: Yes Radiological Interpretation: Interpreted by me, Reviewed by me, Teleradiologist Report - Risk of complications The pt has a mod risk of morbidity or mortality based on: Need for prescription drug management The pt has a high risk of morbidity or mortality based on: Drug therapy requiring intensive monitoring for toxicity, Decision regarding hospitilization or escalation of hosp level of care - Departure Departure Disposition: Observation Clinical Impression: Atrial fibrillation with RVR, Acute UTI Condition: Stable Critical Care Time: Yes Critical Care Time(excluding separately billable procedures): Critical 30-74 mins Referrals: SUNNI JIMENEZ [Primary Care Provider] - Follow up/PCP as directed
[2024-10-01 00:09] LABS: Absolute Neutrophil Ct (ANC) 6.71 x10^3/uL (1.78-5.38); BASOPHIL % 0.4 % (0.2-1.2); Basophil (Absolute #) 0.04 x10^3/uL (0.01-0.08); Eosinophil % 0.9 % (0.8-7.0); Eosinophil (Absolute #) 0.08 x10^3/uL (0.04-0.54); Hematocrit 39.5 % (40.1-51.0); IMMATURE GRAN # 0.12 x10^3u/L (0.001-0.031); IMMATURE GRAN % 1.3 % (0.001-0.429); Lymphocyte (Absolute #) 1.03 x10^3/uL (1.32-3.57); Lymphocytes % 11.2 % (21.8-53.1); Mean Cell Volume 99.2 fL (79.0-92.2); Mean Corpuscular Hemoglobin 35.2 pg (25.7-32.2); Mean Corpuscular Hgb Concent. 35.4 g/dL (32.3-36.5); Mean Platelet Volume 11.4 fL (9.4-12.4); Monocyte (Absolute #) 1.19 x10^3/uL (0.30-0.82); Neutrophil % 73.2 % (34.0-67.9); Platelet Count 124 x10^3/uL (163-337); Red Blood Count 3.98 x10^6/uL (4.63-6.08); Red Cell Distribution Width 12.3 % (11.6-14.4); White Blood Count 9.2 x10^3/uL (4.23-9.07)
[2024-10-01] MEDS ORDERED: Sodium Chloride 0.9% 1000 ML 1,000 ML ONE (00:26)
[2024-10-01] MEDS ORDERED: Cardizem IV 50 MG/10 ML IV ONE (00:26)
[2024-10-01] MEDS: Sodium Chloride 0.9% 1000 ML 1,000 ML IV STA (00:28)
[2024-10-01] MEDS: Cardizem IV 50 MG/10 ML IV ONE (00:29)
[2024-10-01 00:34] LABS: ALBUMIN 3.3 g/dL (3.5-5.0); ALKALINE PHOSPHATASE 150 U/L (38-126); ANION GAP 15.6 MEQ/L (5-15); BLOOD UREA NITROGEN 4 mg/dL (9-20); CHLORIDE 100 mmol/L (98-107); Calcium 8.3 mg/dL (8.4-10.2); Carbon Dioxide 20 mmol/L (22-30); Creatinine 1 0.46 mg/dL (0.66-1.25); EST GLOMERULAR FILTRATION RATE 113.9 ML/MIN; Glucose 139 mg/dL (74-106); NT PRO BNPII 631 pg/mL (<300); SGOT/AST 158 U/L (17-59); SGPT/ALT 73 U/L (0-50); SODIUM 132 mmol/L (135-145); TROPONIN < 0.012 ng/mL (0.000-0.033); Total Protein 6.8 g/dL (6.3-8.2)
[2024-10-01] MEDS: CARDIZEM DRIP 100 MG/100 ML D5W 100 ML IV PRN (01:09)
[2024-10-01 01:24] LABS: Appearance Clear (Clear); Bacteria None Seen /HPF (None Seen); Bilirubin Negative (Negative); Blood Large (Negative); Epithelial Cells Rare /HPF (None Seen); Glucose, Urine Negative (Negative); Ketones Negative (Negative); Leukocyte Esterase Trace (Negative); Nitrite Negative (Negative); Protein,Urine Dip 100 (Negative); RBC >100 /HPF (0-5); WBC 21-50 /HPF (0-5)
--- NOTE | 2024-10-01 01:56 | PCM.HP ---
History of Present Illness - Chief Complaint Chief Complaint: afib Date: 10/01/24 History of Present Illness: Mr. MUNOZ is a 68 year old male with a past medical history significant for hypertension, hyperlipidemia and atrial fibrillation who has been struggling with urinary retention leading to a bilateral thigh rash who presents to the hospital with complaints of weakness. He was found to be in afib w/RVR, and was given cardizem in the ER. He is resting in bed, lethargic but arousable. He is hemodynamically stable with a controlled heart rate now. - Review of Systems Constitutional: No Fever, No Chills Eyes: No Vision Changes Respiratory: No Cough, No Orthopnea, No Short Of Breath Cardiac: Palpitations Abdominal/Gastrointestinal: No Abdominal Pain, No Nausea, No Vomiting Genitourinary Symptoms: Dysuria, Incontinence Musculoskeletal: No Back Pain Skin: No Rash Neurological: Lethargy Psychological: No Suicidal Ideations Medications & Allergies Home Medications: Home Medication List Pravastatin Sodium 10 mg PO HS 03/25/23 [History Confirmed 09/30/24] Flecainide Acetate 50 mg PO BID 05/30/24 [History Confirmed 09/30/24] Losartan Potassium 50 mg [Cozaar 50 MG] 1 tab PO DAILY 05/30/24 [History Confirmed 09/30/24] Metoprolol Tartrate [Lopressor] 1.5 tab PO BID 05/30/24 [History Confirmed 09/30/24] Magnesium Oxide 400 mg [Mag-Ox 400] 400 mg PO DAILY #3 tablet 05/31/24 [Rx Confirmed 09/30/24] Hydroxyzine HCl 25 mg [Atarax 25 mg] 25 mg PO BID 08/25/24 [History Confirmed 09/30/24] Rivaroxaban [Xarelto] 20 mg PO DAILY #0 08/31/24 [Rx Confirmed 09/30/24] Cholecalciferol (Vitamin D3) [Vitamin D] 2,000 unit PO DAILY 09/30/24 [History Confirmed 09/30/24] Folic Acid 1 mg [Folate 1 mg] 1 mg PO DAILY 09/30/24 [History Confirmed 09/30/24] Allergies/Adverse Reactions: Allergies Allergy/AdvReac Type Severity Reaction Status Date / Time No Known Drug Allergies Allergy Verified 09/30/24 22:52 - Past Medical History Past Medical History: Yes Neurological History: No Pertinent History ENT History: Cataracts Cardiac History: Arrhythmia, High Cholesterol, Hypertension Respiratory History: Sleep Apnea Endocrine Medical History: Diabetes Type II Musculoskelatal History: Arthritis GI Medical History: GERD, Gallbladder Disease History: No Pertinent History Pyscho-Social History: No Pertinent History Male Reproductive Disorders: No Pertinent History Comment: Psoriasis - Past Surgical History Past Surgical History: Yes Neuro Surgical History: No Pertinent History Cardiac History: No Pertinent History Respiratory Surgery: No Pertinent History GI Surgical History: Cholecystectomy Genitourinary Surgical Hx: No Pertinent History Musculskeletal Surgical Hx: Orthopedic Surgery Male Surgical History: No Pertinent History Other Surgical History: hand surgery. foot surgery - Social History Smoking Status: Never smoker Exposure to second hand smoke: No Alcohol: Rarely Drug Use: none - Social Determinants of Health Will the patient participate in the screening: Yes Do you worry about a steady place to live?: No Do you have any problems with any of the following?: No known problems In the past 12 months,have you had to go without utilities?: No Have you or anyone in your house had to go without enough: No Transportation Issues: No Has anyone in your support network made you feel unsafe?: No - Physical Exam Vital Signs: Vital Signs - 24 hr Temp Pulse Resp BP BP Pulse Ox 10/01/24 01:15 98 10/01/24 01:09 127 H 18 94/69 10/01/24 01:00 129 H 21 94/69 97 10/01/24 00:30 119 H 23 92/68 97 10/01/24 00:00 130 H 20 114/75 91 L 09/30/24 23:30 146 H 21 124/83 92 L 09/30/24 23:00 131 H 25 H 119/69 94 L 09/30/24 22:41 117 H 19 138/78 09/30/24 22:35 98.9 F 92 H 18 138/78 96 General Appearance: no apparent distress Neurologic Exam: depressed mood/affect Ears, Nose, Throat Exam: dry mucous membranes Neck Exam: non-tender, supple Respiratory Exam: No respiratory distress, No accessory muscle use Cardiovascular Exam: tachycardia Gastrointestinal/Abdomen Exam: soft Extremity Exam: No pedal edema, No swelling Skin Exam: normal color, No rash Results - Labs Lab/Micro Results: Lab Results-Last 24 Hours 09/30/24 09/30/24 10/01/24 Range/Units 00:03 00:03 01:14 WBC 9.2 H (4.23-9.07) x10^3/uL RBC 3.98 L (4.63-6.08) x10^6/uL Hgb 14.0 (13.7-17.5) g/dL Hct 39.5 L (40.1-51.0) % MCV 99.2 H (79.0-92.2) fL MCH 35.2 H (25.7-32.2) pg MCHC 35.4 (32.3-36.5) g/dL RDW 12.3 (11.6-14.4) % Plt Count 124 L (163-337) x10^3/uL MPV 11.4 (9.4-12.4) fL Gran % 73.2 H (34.0-67.9) % Immature Gran % (Auto) 1.3 H (0.001-0.429) % Nucleat RBC Rel Count 0.0 (0.00-0.2) % Eos # (Auto) 0.08 (0.04-0.54) x10^3/uL Immature Gran # (Auto) 0.12 H (0.001-0.031) x10^3u/L Absolute Lymphs (auto) 1.03 L (1.32-3.57) x10^3/uL Absolute Monos (auto) 1.19 H (0.30-0.82) x10^3/uL Absolute Nucleated RBC 0.00 (0.00-0.012) x10^3u/L Lymphocytes % 11.2 L (21.8-53.1) % Monocytes % 13.0 H (5.3-12.2) % Eosinophils % 0.9 (0.8-7.0) % Basophils % 0.4 (0.2-1.2) % Absolute Granulocytes 6.71 H (1.78-5.38) x10^3/uL Basophils # 0.04 (0.01-0.08) x10^3/uL Sodium 132 L (135-145) mmol/L Potassium 4.0 (3.5-5.1) mmol/L Chloride 100 (98-107) mmol/L Carbon Dioxide 20 L (22-30) mmol/L Anion Gap 15.6 H (5-15) MEQ/L BUN 4 L (9-20) mg/dL Creatinine 0.46 L (0.66-1.25) mg/dL Estimated GFR 113.9 ML/MIN Glucose 139 H (74-106) mg/dL Calcium 8.3 L (8.4-10.2) mg/dL Total Bilirubin 0.70 (0.2-1.3) mg/dL AST 158 H (17-59) U/L ALT 73 H (0-50) U/L Alkaline Phosphatase 150 H (38-126) U/L Troponin I < 0.012 (0.000-0.033) ng/mL NT-Pro-B Natriuret Pep 631 (<300) pg/mL Serum Total Protein 6.8 (6.3-8.2) g/dL Albumin 3.3 L (3.5-5.0) g/dL Urine Color Yellow (Yellow) Urine Appearance Clear (Clear) Urine pH 8.0 (4.6-8.0) Ur Specific [place] 1.010 (1.005-1.030) Urine Protein 100 A (Negative) Urine Glucose (UA) Negative (Negative) mg/dL Urine Ketones Negative (Negative) Urine Blood Large A (Negative) Urine Nitrite Negative (Negative) Urine Bilirubin Negative (Negative) Urine Urobilinogen 1.0 A (0.2) mg/dL Ur Leukocyte Esterase Trace A (Negative) U Hyaline Cast (Auto) 3-5 A (0-2) /LPF Urine Microscopic RBC >100 A (0-5) /HPF Urine Microscopic WBC 21-50 A (0-5) /HPF Ur Epithelial Cells Rare (None Seen) /HPF Urine Bacteria None Seen (None Seen) /HPF Urine Culture Reflexed YES (NO) - Radiology Impressions Radiology Exams & Impressions: Radiology Procedures Category Date Time Status CHEST 1 VIEW (PORTABLE) Stat Exams 09/30/24 23:45 Taken Assessment/Plan (1) Atrial fibrillation Current Visit: Yes Status: Acute Qualifiers: Atrial fibrillation type: longstanding persistent Qualified Code(s): I48.11 - Longstanding persistent atrial fibrillation Assessment & Plan: Afib w/RVR despite Flecainide likely from intravascular volume depletion 1. Admit to hospital 2. Cardizem drip 3. IVFs 4. Telemetry 5. Trend troponin Code(s): I48.91 - UNSPECIFIED ATRIAL FIBRILLATION (2) Urinary incontinence Current Visit: Yes Status: Acute Assessment & Plan: Urinary incontinence/retention 1. Check u/a, culture 2. Empiric antibiotics 3. Sierra prn Code(s): R32 - UNSPECIFIED URINARY INCONTINENCE (3) Essential (primary) hypertension Current Visit: Yes Status: Acute Assessment & Plan: Blood pressure under reasonable control 1. Continue bp meds 2. Low Na diet 3. Monitor blood pressure while on Cardizem drip Code(s): I10 - ESSENTIAL (PRIMARY) HYPERTENSION (4) Hyponatremia Current Visit: Yes Status: Acute Assessment & Plan: Likely from hypovolemia but need to rule out hypothyroidism 1. Check urine lytes urine osmo 2. Limit free water 3. Watch electrolytes closely Code(s): E87.1 - HYPO-OSMOLALITY AND HYPONATREMIA Telemedicine Encounter - Telemedicine Encounter Telemedicine Encounter: "The entirety of this encounter was performed via Telemedicine" This visit was performed using real-time audio and video connection between my location and thepatients locationwith the assistance of a surrogateat the patients location. Written or verbal consent was obtained from the patient/guardian to perform this visit [email or web address]. Any patient questions regarding the telemedicine interaction were answered.
[2024-10-01] MEDS ORDERED: ROCEPHIN 2 GM/100 ML NACL 2 GM/100 ML IVPB IV ONE ×2 (01:57→02:02)
[2024-10-01] MEDS: ROCEPHIN 2 GM/100 ML NACL 2 GM/100 ML IVPB IV ONE (02:04)
[2024-10-01] MEDS ORDERED: TYLENOL 325 MG PO PRN (02:22)
--- NOTE | 2024-10-01 02:51 | XRAY ---
CLINICAL HISTORY: atrial fib COMPARISON: none TECHNIQUE: Radiograph of chest was acquired. FINDINGS: Bulky left hilar shadow. The lungs are clear and well-expanded with no pulmonary infiltrate or pleural effusion. The cardiomediastinal silhouette is within normal limits. No acute osseous abnormality. IMPRESSION: 1. Bulky left hilar shadow- possible lymph node enlargement. Advised CT chest correlation. Electronically Signed by: Reggie Celaya MD. (10/01/2024 02:46:51 EDT)
[2024-10-01] MEDS: Sodium Chloride 0.9% 1000 ML 1,000 ML IV SCH (02:59)
[2024-10-01 04:35] LABS: Hematocrit 39.7 % (40.1-51.0); Hemoglobin 13.6 g/dL (13.7-17.5); Mean Cell Volume 100.5 fL (79.0-92.2); Mean Corpuscular Hemoglobin 34.4 pg (25.7-32.2); Mean Corpuscular Hgb Concent. 34.3 g/dL (32.3-36.5); Mean Platelet Volume 11.7 fL (9.4-12.4); Platelet Count 133 x10^3/uL (163-337); Red Blood Count 3.95 x10^6/uL (4.63-6.08); Red Cell Distribution Width 12.6 % (11.6-14.4); White Blood Count 7.8 x10^3/uL (4.23-9.07)
[2024-10-01 04:45] LABS: ALBUMIN 2.8 g/dL (3.5-5.0); ANION GAP 13.6 MEQ/L (5-15); BILIRUBIN,TOTAL 0.6 mg/dL (0.2-1.3); Creatinine 1 0.4 mg/dL (0.66-1.25); EST GLOMERULAR FILTRATION RATE 118.8 ML/MIN; Total Protein 6.2 g/dL (6.3-8.2)
[2024-10-01] MEDS: Seroquel 25 MG PO ONE (08:33)
[2024-10-01] MEDS: FLECAINIDE ACETATE PO SCH (09:21)
[2024-10-01] MEDS: MAG-OX 400 PO SCH (09:21)
[2024-10-01] MEDS: XARELTO 10 MG TABLET PO SCH (09:21)
[2024-10-01] MEDS: FOLATE 1 MG PO SCH (09:21)
[2024-10-01] MEDS: Lopressor 25MG Tab PO SCH (09:21)
[2024-10-01] MEDS: ATARAX 25 MG PO SCH (09:21)
[2024-10-01] MEDS: Cozaar 50 MG PO SCH (09:21)
[2024-10-01] MEDS: VITAMIN D PO SCH (09:21)
--- NOTE | 2024-10-01 13:50 | XRAY ---
Indication: Abnormal chest x-ray. Short of breath. Pulmonary embolus. Multiple contiguous axial images obtained through the chest using 80 cc Isovue 370 contrast and PE protocol. Comparison: CT chest without contrast May 30, 2024. Good opacification pulmonary arteries including lobar and segmental branches. No pulmonary embolus. Heart not enlarged again with scattered coronary calcifications. Aorta again mildly arteriosclerotic without aneurysm/dissection. Stable tiny right hilar calcified nodes. No pathologic mediastinal/hilar lymphadenopathy. Lungs demonstrate worsening moderate bilateral dependent atelectasis with new tiny bilateral effusions. No new pulmonary mass/nodule, infiltrate, or pneumothorax. Bony thorax intact again with osteopenia and flowing osteophytes throughout spine. Limited upper abdomen demonstrates stable 1 cm left lobe hepatic cyst/hemangioma. Interval cholecystectomy. Impression: 1. Negative pulmonary embolus. 2. Worsening bilateral dependent atelectasis with new tiny bilateral effusions. 3. Again chronic findings including arteriosclerotic disease, chronic bony findings, hepatic cyst/hemangioma, and old granulomatous disease.
[2024-10-01] MEDS: Flomax 0.4 MG PO SCH (14:39)
[2024-10-01] MEDS: ROCEPHIN 1 GM / 100 ML NaCl 1 GM/100 ML IVPB IV SCH (22:19)
[2024-10-01] MEDS: Zofran 4 MG/2 ML VIAL IV PRN (22:34)
[2024-10-01] MEDS: Zocor 10MG PO SCH (22:35)
[2024-10-01] MEDS: BENADRYL 50 MG/ML IV PRN (22:37)
[2024-10-02 05:02] LABS: Absolute Neutrophil Ct (ANC) 4.71 x10^3/uL (1.78-5.38); BASOPHIL % 0.4 % (0.2-1.2); Basophil (Absolute #) 0.03 x10^3/uL (0.01-0.08); Eosinophil % 2.9 % (0.8-7.0); Hematocrit 35.4 % (40.1-51.0); IMMATURE GRAN % 1.5 % (0.001-0.429); Lymphocyte (Absolute #) 0.84 x10^3/uL (1.32-3.57); Lymphocytes % 12.3 % (21.8-53.1); Mean Cell Volume 102.6 fL (79.0-92.2); Mean Corpuscular Hemoglobin 34.8 pg (25.7-32.2); Mean Corpuscular Hgb Concent. 33.9 g/dL (32.3-36.5); Mean Platelet Volume 11.1 fL (9.4-12.4); Monocyte (Absolute #) 0.97 x10^3/uL (0.30-0.82); Monocytes % 14.2 % (5.3-12.2); Neutrophil % 68.7 % (34.0-67.9); Platelet Count 114 x10^3/uL (163-337); Red Blood Count 3.45 x10^6/uL (4.63-6.08); Red Cell Distribution Width 12.9 % (11.6-14.4); White Blood Count 6.9 x10^3/uL (4.23-9.07)
[2024-10-02 05:22] LABS: ANION GAP 10.3 MEQ/L (5-15); Calcium 7.8 mg/dL (8.4-10.2); Creatinine 1 0.41 mg/dL (0.66-1.25); Potassium 3.7 mmol/L (3.5-5.1)
[2024-10-02 07:31] VITALS: TEMP 97.8; O2SAT 97
--- NOTE | 2024-10-02 10:32 | PCM.DS ---
Discharge Summary Date of Admission: 10/01/24 02:13 Date of Discharge: 10/02/24 Admitting Physician: WAQAS JONES MD Primary Care Provider: SUNNI JIMENEZ Allergies Allergies No Known Drug Allergies Allergy (Verified 09/30/24 22:52) Hospital Summary - Hospital Course Hospital Course: Mr. Cassidy is a 68-year-old male with a significant medical history including hypertension, hyperlipidemia, and longstanding persistent atrial fibrillation, was admitted 10/01/24 due to weakness and urinary retention. On admission, he presented with AF and rapid ventricular response. His heart rate was successfully controlled with intravenous Cardizem. Despite an initial episode of urinary retention managed with a Sierra catheter, a post-void residual test demonstrated no significant retention following catheter removal, indicating resolution of the acute retention. Hyponatremia was noted during the hospitalization, most likely due to hypovolemia, though thyroid function was also considered in the differential for which levels were WNL. Electrolyte monitoring and restriction of free water intake were instituted as part of the management plan. CT imaging of the chest revealed no pulmonary embolism, but bilateral atelectasis worsened with the appearance of small bilateral pleural effusions. These findings were consistent with the patient's chronic comorbidi ties, including arteriosclerotic disease, without any acute exacerbation. His blood pressure remained adequately controlled during the hospitalization with continued use of his home antihypertensive regimen, and there were no significant fluctuations noted despite the administration of Cardizem. The patient was managed with telemetry for continuous monitoring of his cardiac rhythm and troponin levels to rule out myocardial injury, which remained stable. The clinical course was favorable, with no new acute cardiac or renal events noted during his hospitalization. At discharge, the patient was stable, with his atrial fibrillation under rate control. He was advised to follow up with cardiology for further discussion on cardiac ablation as a treatment option for his persistent atrial fibrillation. Additionally, urology follow-up was recommended to assess the underlying cause of his urinary retention and for ongoing management. He was also instructed to continue his antihypertensive medications and maintain a low-sodium diet, with close monitoring of electrolytes. Patient is agreeable to plan. I spent 35 minutes [id number] with the patient on the day of discharge performing discharge exam, discussing hospital stay and discharge instructions with patient and caregivers, preparation of discharge records, prescriptions & referral forms and addressing any questions/concerns the patient had as documented above. - Vitals & Intake/Output Vital Signs: Vital Signs Temperature 97.8 F 10/02/24 07:31 Pulse Rate 85 10/02/24 09:00 Respiratory Rate 27 H 10/02/24 10:00 Blood Pressure 120/68 10/02/24 10:00 O2 Sat by Pulse Oximetry 97 10/02/24 07:31 Intake & Output: Intake & Output 09/29/24 09/30/24 10/01/24 10/02/24 11:59 11:59 11:59 11:59 Intake Total 210 3588 Output Total 352 220 Balance -142 3368 Weight 79.4 kg - Lab Result Diagrams: 10/02/24 04:56 10/02/24 04:56 Lab Results-Last 24 Hrs: Lab Results-Last 24 Hours 10/02/24 10/02/24 10/02/24 Range/Units 04:56 04:56 04:56 WBC 6.9 (4.23-9.07) x10^3/uL RBC 3.45 L (4.63-6.08) x10^6/uL Hgb 12.0 L (13.7-17.5) g/dL Hct 35.4 L (40.1-51.0) % MCV 102.6 H (79.0-92.2) fL MCH 34.8 H (25.7-32.2) pg MCHC 33.9 (32.3-36.5) g/dL RDW 12.9 (11.6-14.4) % Plt Count 114 L (163-337) x10^3/uL MPV 11.1 (9.4-12.4) fL Gran % 68.7 H (34.0-67.9) % Immature Gran % (Auto) 1.5 H (0.001-0.429) % Nucleat RBC Rel Count 0.0 (0.00-0.2) % Eos # (Auto) 0.20 (0.04-0.54) x10^3/uL Immature Gran # (Auto) 0.10 H (0.001-0.031) x10^3u/L Absolute Lymphs (auto) 0.84 L (1.32-3.57) x10^3/uL Absolute Monos (auto) 0.97 H (0.30-0.82) x10^3/uL Absolute Nucleated RBC 0.00 (0.00-0.012) x10^3u/L Lymphocytes % 12.3 L (21.8-53.1) % Monocytes % 14.2 H (5.3-12.2) % Eosinophils % 2.9 (0.8-7.0) % Basophils % 0.4 (0.2-1.2) % Absolute Granulocytes 4.71 (1.78-5.38) x10^3/uL Basophils # 0.03 (0.01-0.08) x10^3/uL Sodium 132 L (135-145) mmol/L Potassium 3.7 (3.5-5.1) mmol/L Chloride 105 (98-107) mmol/L Carbon Dioxide 21 L (22-30) mmol/L Anion Gap 10.3 (5-15) MEQ/L BUN 5 L (9-20) mg/dL Creatinine 0.41 L (0.66-1.25) mg/dL Estimated GFR 118.0 ML/MIN Glucose 114 H (74-106) mg/dL Calcium 7.8 L (8.4-10.2) mg/dL TSH 3rd Generation 1.181 (0.470-4.680) mIU/L Micro Results-Entire Visit: Microbiology 10/01/24 01:14 Urine Culture - Final Urine, Catheterized <10K NORMAL SKIN TREY PROBABLE SKIN CONTAMINANT Accuchecks Date 10/02/24 Time 07:32 - Radiology Exams Ordered Rad Exams-Entire Visit: Radiology Procedures Category Date Time Status CHEST 1 VIEW (PORTABLE) Stat Exams 09/30/24 23:45 Completed CHEST WITH CONTRAST [CT] Urgent Exams 10/01/24 07:39 Completed - Procedures and Test Procedures and Tests throughout Hospitalization: Therapy Orders & Screens 10/01/24 02:18 Respiratory Therapy Consult ONCE Comment: Reason For Exam: 10/01/24 02:22 EKG REPEAT IN AM Comment: Diagnosis: afib Discharge Exam General Appearance: no apparent distress Neurologic Exam: alert, oriented x 3, cooperative Eye Exam: PERRL Ears, Nose, Throat Exam: normal ENT inspection Neck Exam: normal inspection Respiratory Exam: normal breath sounds, lungs clear Cardiovascular Exam: irregular Gastrointestinal/Abdomen Exam: soft, normal bowel sounds Male Genitalia Exam: deferred Rectal Exam: deferred Back Exam: normal inspection Extremity Exam: normal inspection Skin Exam: rash Final Diagnosis/Problem List - Final Discharge Diagnosis/Problem (1) Atrial fibrillation with RVR Current Visit: Yes Status: Resolved Code(s): I48.91 - UNSPECIFIED ATRIAL FIBRILLATION (2) Urinary retention Current Visit: Yes Status: Resolved Code(s): R33.9 - RETENTION OF URINE, UNSPECIFIED (3) Acute UTI Current Visit: Yes Status: Acute Code(s): N39.0 - URINARY TRACT INFECTION, SITE NOT SPECIFIED (4) Essential (primary) hypertension Current Visit: Yes Status: Chronic Code(s): I10 - ESSENTIAL (PRIMARY) HYPERTENSION (5) Hyponatremia Current Visit: Yes Status: Chronic Code(s): E87.1 - HYPO-OSMOLALITY AND HYPONATREMIA (6) Urinary incontinence Current Visit: Yes Status: Chronic Code(s): R32 - UNSPECIFIED URINARY INCONT INENCE - Discharge Discharge Date: 10/02/24 Disposition: Home, Self-Care Condition: Stable Prescriptions: New Cefdinir [Omnicef 300 mg] 300 mg PO BID 7 Days #14 cap Continue Pravastatin Sodium 10 mg PO HS Losartan Potassium 50 mg [Cozaar 50 MG] 1 tab PO DAILY Flecainide Acetate 50 mg PO BID Metoprolol Tartrate [Lopressor] 1.5 tab PO BID Magnesium Oxide 400 mg [Mag-Ox 400] 400 mg PO DAILY #3 tablet Hydroxyzine HCl 25 mg [Atarax 25 mg] 25 mg PO BID Rivaroxaban [Xarelto] 20 mg PO DAILY #0 Cholecalciferol (Vitamin D3) [Vitamin D] 2,000 unit PO DAILY Folic Acid 1 mg [Folate 1 mg] 1 mg PO DAILY Follow up with: RUSS HENRY [CONSULTING PHYSICIAN] - 12/09/24 9:30 am SUNNI JIMENEZ [Primary Care Provider] - 10/08/24 1:00 pm ROD HOYOS MD [NON-STAFF PHY W/O PRIVILEGES] - 10/15/24 9:00 am (academic affairs coordinator for patient) YAIMA TOBAR NP [ALLIED HEALTH PROFESSION STAFF] - 10/08/24 10:15 am
[2024-10-02 11:02] VITALS: BP 116/74; PULSE 79; RESP 22
== END 2024-10-02 11:30 | disposition home or self-care (01) ==
LOC: ED 22:22 → ICU 10-01 02:13
PROVIDERS: ADMIT Internal Medicine Nephrology; ATTEND Internal Medicine Nephrology
DX: I48.20 Chronic atrial fibrillation, unspecified (principal); R33.9 Retention of urine, unspecified; N39.0 Urinary tract infection, site not specified; I10 Essential (primary) hypertension; E87.1 Hypo-osmolality and hyponatremia; R32 Unspecified urinary incontinence; Z79.899 Other long term (current) drug therapy; Z79.01 Long term (current) use of anticoagulants; R21 Rash and other nonspecific skin eruption; E11.9 Type 2 diabetes mellitus without complications
CPT/HCPCS: 36415; 51702; 71045; 71260; 80048; 80053; 81001; 83880; 84443; 84484; 85025; 85027; 87086; 93005; 93041; 93268; 96372; 96374; 99285; 99291; J0696; J1200; J2270; J2405; Q3014; A9270-GY; G0378